=== PATIENT | female | born 1955 | race Caucasian/White ===

== ENCOUNTER → 2016-10-09 | Day surgery (SDC) | payer OTHER ==
[2016-10-09 08:00] VITALS: BP 126/69
== END | disposition home or self-care (01) ==
LOC: OR 08:25
DX: E66.01 Morbid (severe) obesity due to excess calories (principal); E46 Unspecified protein-calorie malnutrition; J96.90 Respiratory failure, unspecified, unspecified whether with hypoxia or hypercapnia; I10 Essential (primary) hypertension; E11.9 Type 2 diabetes mellitus without complications; Z79.899 Other long term (current) drug therapy
CPT/HCPCS: 50010; 50101; 50249; 50386; 52265; 54118; 56526; 57092; 62110; 62900; 70005

== ENCOUNTER 2016-10-17 12:23 | Inpatient (IN) | payer OTHER ==
[~2016-10-17] VITALS: Ht 162.6 cm; Wt 156.9 kg
--- NOTE | ~2016-10-17 | S ---
[facility] [place] [address] SURGICAL PATH RPT PROCEDURE Name: NU MODI Room #: 247-P [facility] IN M.R.#: [id number] Admission: 10/17/16 Date of : 53 Discharge: 10/25/16 Report #: [id number] Path Case #: [id number] PATHOLOGY REPORT COLLECTION DATE: 10/23/2016 RECEIVED DATE: 10/26/2016 SUBMITTING PHYS: Dr. Duy Young OTHER PHYS: Dr. Kev Faith SPECIMEN(S) RECEIVED: A.Gastric ulcer * * * * * * * * * * * * FINAL DIAGNOSIS: Gastric ulcer, excision: - Marked active ulceration extending transmurally. - Negative for dysplasia or malignancy. COMMENT: Helicobacter pylori immunohistochemical stain is ordered on block A1, and the results of this stain will be reported in an addendum to follow. (IUV:mgr; 10/27/2016) PATHOLOGIST: Jessica Martinez M.D. REPORT ELECTRONICALLY SIGNED BY: Jessica Martinez M.D. DATE/TIME: 10/27/2016 15:41 * * * * * * * * * * * * GROSS PATHOLOGY: The specimen is received in formalin labeled "Nu Modi, gastric ulcer". Received is a segment of stomach with a single stapled margin of resection measuring 4.5 x 2.0 x 1.5 cm in greatest measures. The margin opposite the sonia displays exposed pale smith to red-brown mucosa measuring 2.5 x 2.0 cm. Opening the specimen reveals red-smith to light smith mucosa with minimal architectural folding. No distinct nodules or lesions are noted grossly. The specimen is submitted representatively in cassette A1. (CAA; 10/26/2016) CLINICAL HISTORY: Bleeding gastric ulcer INITIAL CPT CODE(S): [facility] [place] [address] SURGICAL PATH RPT PROCEDURE Name: NU MODI Room #: 247-P [facility] IN M.R.#: [id number] Admission: 10/17/16 Date of : 53 Discharge: 10/25/16 Report #: [id number] Path Case #: [id number] Professional services performed by [facility] at [address] [place] [address] Technical services performed by [facility] at [address] [place] [address], [place] [address]. CC: Boom [facility] [address] [place] [address] PHONE: [phone] DIRECTOR: Umair Titus M.D. * * * END OF REPORT * * *
[2016-10-17 12:53] LABS: HEMATOCRIT 23.3 % (37.0-47.0); HEMOGLOBIN 7.2 gm/dL (12.0-15.0); MCH 27.7 pg (26.0-34.0); MCHC 30.8 g/dL (28.0-37.0); MCV 89.8 fL (80.0-100.0); PLATELET COUNT 325 thou/uL (150-400); RBC 2.59 mil/uL (4.20-5.00); RDW 16.7 % (10.5-14.5); WBC 15.2 thou/uL (4.0-11.0)
[2016-10-17 12:55] LABS: MANUAL DIFF YES
[2016-10-17 13:01] LABS: CALCIUM 8.7 mg/dL (8.5-10.1); POTASSIUM 3.9 mmol/L (3.5-5.1)
[2016-10-17 13:06] LABS: ALBUMIN 1.5 g/dL (3.4-5.0); APTT 40.2 Seconds (24.5-32.8); DIRECT BILIRUBIN 0.1 mg/dL (<0.1-0.3); INR 2.4; PROTIME 24.6 Seconds (9.3-11.4); TOTAL BILIRUBIN 0.3 mg/dL (<0.1-1.0); TOTAL PROTEIN 6.2 g/dL (6.4-8.2)
[2016-10-17 13:35] LABS: ABSOLUTE NEUTROPHILS 10.2 thou/uL (1.4-8.2); METAMYELOCYTES 3 %; MYELOCYTES 1 %; NUCLEATED RBCS 1 /100WBC; TOTAL CELL COUNT 100
[2016-10-17 13:36] LABS: ANISOCYTOSIS 2+; POLYCHROMASIA 1+
[2016-10-17 13:37] LABS: POIKILOCYTOSIS SLIGHT
[2016-10-17] MEDS ORDERED: NORVASC5 MG PO (15:01)
[2016-10-17] MEDS ORDERED: LOPRESSOR25 PO (15:10)
[2016-10-17] MEDS ORDERED: PREVACID30 M2 PER TUBE (15:14)
[2016-10-17] MEDS ORDERED: LEVEMIR FL100 UNIT/2 SQ (15:15)
[2016-10-17] MEDS ORDERED: PIPERACIL-TA3.375 G1 IV (15:16)
[2016-10-17] MEDS ORDERED: NOVOLOG100 UNIT/1 SUBQ (16:39)
[2016-10-17] MEDS ORDERED: COUMADIN 5 MG TA5 M1 PO (16:39)
[2016-10-17] MEDS ORDERED: VANCOMYCIN500 MG/VIA IV (16:41)
[2016-10-17] MEDS ORDERED: DIFLUCAN200 MG IV (16:41)
[2016-10-17] MEDS ORDERED: ZOSYN 2.25 GR2.25 GM IV (16:41)
[2016-10-17] MEDS ORDERED: ALBUTEROL2.5 MG/31 INH (16:42)
[2016-10-17] MEDS ORDERED: FEVERALL650 MG PER TUBE (16:42)
[2016-10-17] MEDS ORDERED: NITROGLYCERIN1 EAC1 TD (16:43)
[2016-10-17 19:19] LABS: HEMATOCRIT 22.4 % (37.0-47.0); HEMOGLOBIN 6.8 gm/dL (12.0-15.0)
[2016-10-17 19:50] VITALS: BP 108/56
[2016-10-17 20:00] VITALS: BP 157/146
[2016-10-17 20:32] VITALS: BP 103/55
[2016-10-17 21:00] VITALS: BP 106/61
[2016-10-17 22:00] VITALS: BP 101/53
[2016-10-17 23:00] VITALS: BP 99/55
[2016-10-18] VITALS (36 sets, daily range): BP systolic 77–116; BP diastolic 48–96
[2016-10-18 01:12] LABS: HEMATOCRIT 20.5 % (37.0-47.0)
[2016-10-18 01:13] LABS: HEMOGLOBIN 6.3 gm/dL (12.0-15.0)
[2016-10-18] MEDS ORDERED: DIFLUCAN IVPB (04:13)
[2016-10-18] MEDS ORDERED: ENOXAPARIN100 MG/11 SUBQ (04:18)
[2016-10-18] MEDS ORDERED: ENOXAPARIN80 MG/0.1 SUBQ (04:19)
[2016-10-18 05:32] LABS: HEMATOCRIT 23.7 % (37.0-47.0); HEMOGLOBIN 7.5 gm/dL (12.0-15.0); MCH 27.8 pg (26.0-34.0); MCHC 31.7 g/dL (28.0-37.0); MCV 87.7 fL (80.0-100.0); RBC 2.7 mil/uL (4.20-5.00); RDW 17.3 % (10.5-14.5); WBC 14.5 thou/uL (4.0-11.0)
[2016-10-18 05:53] LABS: INR 1.8; PROTIME 19.1 Seconds (9.3-11.4)
[2016-10-18 06:01] LABS: ALBUMIN 1.4 g/dL (3.4-5.0); CALCIUM 8.6 mg/dL (8.5-10.1); CREATININE 1.7 mg/dL (0.6-1.0); POTASSIUM 3.7 mmol/L (3.5-5.1); TOTAL BILIRUBIN 0.4 mg/dL (<0.1-1.0); TOTAL PROTEIN 5.9 g/dL (6.4-8.2)
[2016-10-18 20:41] LABS: HEMOGLOBIN 6.8 gm/dL (12.0-15.0)
[2016-10-18 20:42] LABS: HEMATOCRIT 21.5 % (37.0-47.0)
[2016-10-19] VITALS (64 sets, daily range): BP systolic 73–105; BP diastolic 49–75
[2016-10-19 05:24] LABS: HEMOGLOBIN 6.5 gm/dL (12.0-15.0); WBC 11.3 thou/uL (4.0-11.0)
[2016-10-19 05:25] LABS: HEMATOCRIT 20.5 % (37.0-47.0); MCH 27.5 pg (26.0-34.0); MCHC 31.7 g/dL (28.0-37.0); MCV 86.9 fL (80.0-100.0); RBC 2.36 mil/uL (4.20-5.00); RDW 17.3 % (10.5-14.5)
[2016-10-19 05:39] LABS: CALCIUM 8.4 mg/dL (8.5-10.1); CREATININE 1.2 mg/dL (0.6-1.0)
[2016-10-19 05:40] LABS: POTASSIUM 2.9 mmol/L (3.5-5.1)
[2016-10-19 11:52] LABS: HEMATOCRIT 23.4 % (37.0-47.0); HEMOGLOBIN 7.4 gm/dL (12.0-15.0)
[2016-10-19 12:01] LABS: MAGNESIUM 2.4 mg/dL (1.8-2.4); POTASSIUM 3.5 mmol/L (3.5-5.1)
[2016-10-20] VITALS (35 sets, daily range): BP systolic 85–118; BP diastolic 51–85
[2016-10-20 07:18] LABS: HEMATOCRIT 22.1 % (37.0-47.0); HEMOGLOBIN 7.1 gm/dL (12.0-15.0); MCH 28.1 pg (26.0-34.0); MCHC 32.1 g/dL (28.0-37.0); MCV 87.4 fL (80.0-100.0); RBC 2.53 mil/uL (4.20-5.00); RDW 17.5 % (10.5-14.5); WBC 9.2 thou/uL (4.0-11.0)
[2016-10-20 07:45] LABS: CALCIUM 8.2 mg/dL (8.5-10.1); CREATININE 1.1 mg/dL (0.6-1.0); POTASSIUM 3.4 mmol/L (3.5-5.1)
[2016-10-20 12:46] LABS: CALCIUM 8.3 mg/dL (8.5-10.1); CREATININE 1.1 mg/dL (0.6-1.0); POTASSIUM 3.2 mmol/L (3.5-5.1)
[2016-10-21] VITALS (46 sets, daily range): BP systolic 93–132; BP diastolic 61–111
[2016-10-21 04:23] LABS: HEMATOCRIT 22.8 % (37.0-47.0); HEMOGLOBIN 7.5 gm/dL (12.0-15.0); MCH 28.6 pg (26.0-34.0); MCHC 32.9 g/dL (28.0-37.0); RBC 2.62 mil/uL (4.20-5.00); RDW 17.8 % (10.5-14.5); WBC 8.6 thou/uL (4.0-11.0)
[2016-10-21 04:39] LABS: CALCIUM 8.3 mg/dL (8.5-10.1); POTASSIUM 3.5 mmol/L (3.5-5.1)
[2016-10-21 15:49] LABS: INR 2.5; PROTIME 26.1 Seconds (9.3-11.4)
[2016-10-22] VITALS (68 sets, daily range): BP systolic 77–142; BP diastolic 50–99
[2016-10-22 05:36] LABS: HEMATOCRIT 22.7 % (37.0-47.0); HEMOGLOBIN 7.2 gm/dL (12.0-15.0); MCH 27.9 pg (26.0-34.0); MCHC 31.6 g/dL (28.0-37.0); MCV 88.4 fL (80.0-100.0); RBC 2.56 mil/uL (4.20-5.00); RDW 18.5 % (10.5-14.5); WBC 8.4 thou/uL (4.0-11.0)
[2016-10-22 07:06] LABS: CALCIUM 7.5 mg/dL (8.5-10.1); POTASSIUM 3.1 mmol/L (3.5-5.1)
[2016-10-22 09:25] LABS: INR 2.9; PROTIME 29.9 Seconds (9.3-11.4)
[2016-10-22 11:08] LABS: MAGNESIUM 1.3 mg/dL (1.8-2.4); PHOSPHORUS 1.5 mg/dL (2.5-4.9)
[2016-10-22 18:15] LABS: PROTIME 20.5 Seconds (9.3-11.4)
[2016-10-23] VITALS (84 sets, daily range): BP systolic 111–147; BP diastolic 69–106
[2016-10-23 00:26] LABS: INR 1.8; PROTIME 18.6 Seconds (9.3-11.4)
[2016-10-23 05:20] LABS: HEMOGLOBIN 6.9 gm/dL (12.0-15.0)
[2016-10-23 05:21] LABS: MCH 28.2 pg (26.0-34.0); MCHC 32.7 g/dL (28.0-37.0); MCV 86.2 fL (80.0-100.0); RBC 2.44 mil/uL (4.20-5.00); RDW 17.9 % (10.5-14.5); WBC 6.8 thou/uL (4.0-11.0)
[2016-10-23 05:33] LABS: ALBUMIN 2.2 g/dL (3.4-5.0); CALCIUM 8.5 mg/dL (8.5-10.1); MAGNESIUM 1.4 mg/dL (1.8-2.4); PHOSPHORUS 2.2 mg/dL (2.5-4.9); TOTAL BILIRUBIN 0.3 mg/dL (<0.1-1.0); TOTAL PROTEIN 6.4 g/dL (6.4-8.2)
[2016-10-23 05:36] LABS: INR 1.6; PROTIME 16.8 Seconds (9.3-11.4)
[2016-10-23 05:48] LABS: POTASSIUM 2.9 mmol/L (3.5-5.1)
[2016-10-23 18:37] LABS: HEMATOCRIT 30.3 % (37.0-47.0)
[2016-10-23 18:39] LABS: HEMOGLOBIN 9.7 gm/dL (12.0-15.0)
[2016-10-23 18:42] LABS: MAGNESIUM 1.7 mg/dL (1.8-2.4); POTASSIUM 3.8 mmol/L (3.5-5.1)
[2016-10-24] VITALS (47 sets, daily range): BP systolic 109–153; BP diastolic 67–98
[2016-10-24 05:26] LABS: ABG SAMPLE TYPE ARTERIAL; BE(vivo) -0.9 mmol/L (-2 to +3); FIO2 30 %; HCO3 23.3 mmol/L (22.0-26.0); LACTATE 2.25 mmol/L (0.5-2.0); O2(CT) 13.9 mL/dL (15.0-23.0); O2Hb 95.4 % (92.0-98.0); PCO2 36.9 mmHg (35.0-45.0); PO2 88.2 mmHg (80.0-100.0); STICK SITE L.RADIAL; TIDAL VOLUME 500 ml; pH 7.419 (7.360-7.450); sO2 96.9 % (92.0-98.0); tCO2 24.5 mmol/L (24.0-30.0)
[2016-10-24 05:59] LABS: HEMATOCRIT 28.2 % (37.0-47.0); HEMOGLOBIN 9.4 gm/dL (12.0-15.0); MCH 28.4 pg (26.0-34.0); MCHC 33.4 g/dL (28.0-37.0); MCV 85.1 fL (80.0-100.0); RBC 3.32 mil/uL (4.20-5.00); RDW 18.1 % (10.5-14.5); WBC 8.8 thou/uL (4.0-11.0)
[2016-10-24 06:42] LABS: CALCIUM 8.6 mg/dL (8.5-10.1); MAGNESIUM 1.7 mg/dL (1.8-2.4); PHOSPHORUS 2.5 mg/dL (2.5-4.9); POTASSIUM 3.6 mmol/L (3.5-5.1)
[2016-10-25] VITALS (18 sets, daily range): BP systolic 84–162; BP diastolic 57–91
[2016-10-25 05:23] LABS: URINE BILIRUBIN NEGATIVE (Negative); URINE BLOOD 2+ (Negative); URINE COLOR YELLOW; URINE GLUCOSE-RANDOM* NEGATIVE (Negative); URINE KETONES NEGATIVE (Negative); URINE LEUKOCYTES-REFLEX 3+ (Negative); URINE PROTEIN (DIPSTICK) 1+ (Negative); URINE UROBILINOGEN 0.2 E.U./dl (0.2-1.0)
[2016-10-25 05:34] LABS: CALCIUM 7.9 mg/dL (8.5-10.1); CREATININE 0.9 mg/dL (0.6-1.0); MAGNESIUM 1.8 mg/dL (1.8-2.4); PHOSPHORUS 1.9 mg/dL (2.5-4.9); POTASSIUM 3.5 mmol/L (3.5-5.1); SQUAMOUS 0-3 Few /LPF (0-3); URINE RBC 3-10 Few /HPF (0-2); URINE WBC-REFLEX >25 Many /HPF (0-5)
[2016-10-25 05:35] LABS: CASTS None Seen /LPF (None Seen); CRYSTALS None Seen /LPF (None Seen); YEAST-REFLEX Present (None Seen)
== END 2016-10-25 17:00 | DRG 326 ==
LOC: ER 12:23 → EROBS 16:16 → ICU 16:16
PROVIDERS: Emergency Medicine; Internal Medicine; Internal Medicine Geriatric Medicine; Internal Medicine Pulmonary Disease; Nurse Practitioner Adult Health; Specialist; Surgery
DX: K94.23 Gastrostomy malfunction (principal); A41.9 Sepsis, unspecified organism; J96.20 Acute and chronic respiratory failure, unspecified whether with hypoxia or hypercapnia; K65.9 Peritonitis, unspecified; K92.2 Gastrointestinal hemorrhage, unspecified; D62 Acute posthemorrhagic anemia; E87.0 Hyperosmolality and hypernatremia; N17.9 Acute kidney failure, unspecified; I13.0 Hypertensive heart and chronic kidney disease with heart failure and stage 1 through stage 4 chronic kidney disease, or unspecified chronic kidney disease; I50.32 Chronic diastolic (congestive) heart failure; N13.2 Hydronephrosis with renal and ureteral calculous obstruction; E46 Unspecified protein-calorie malnutrition; N39.0 Urinary tract infection, site not specified; Z68.43 Body mass index [BMI] 50.0-59.9, adult; Z99.11 Dependence on respirator [ventilator] status; G47.33 Obstructive sleep apnea (adult) (pediatric); G89.29 Other chronic pain; M54.9 Dorsalgia, unspecified; E66.01 Morbid (severe) obesity due to excess calories; E87.6 Hypokalemia; E11.22 Type 2 diabetes mellitus with diabetic chronic kidney disease; N18.9 Chronic kidney disease, unspecified; E87.8 Other disorders of electrolyte and fluid balance, not elsewhere classified; Z86.711 Personal history of pulmonary embolism; Z79.899 Other long term (current) drug therapy
CPT/HCPCS: 10078; 50101; 50386; 51238; 51412; 51708; 51714; 56525; 56527; 56530; 57092; 62110; 62900

== ENCOUNTER → 2016-11-03 | Outpatient (CLI) | payer OTHER ==
[~2016-11-03] MED LIST: ALBUTEROL2.5 MG/31 INH; COUMADIN 5 MG TA5 M1 PO; DIFLUCAN IVPB; DIFLUCAN200 MG IV; ENOXAPARIN100 MG/11 SUBQ; ENOXAPARIN80 MG/0.1 SUBQ; FEVERALL650 MG PER TUBE; LEVEMIR FL100 UNIT/2 SQ; LEVEMIR SUBQ; LOPRESSOR25 PO; NITROGLYCERIN1 EAC1 TD; NORVASC5 MG PO; NOVOLOG100 UNIT/1 SUBQ; PIPERACIL-TA3.375 G1 IV; PREVACID30 M2 PER TUBE; VANCOMYCIN500 MG/VIA IV; ZOSYN 2.25 GR2.25 GM IV
== END ==
LOC: SPEC 09:55
DX: T85.598A Other mechanical complication of other gastrointestinal prosthetic devices, implants and grafts, initial encounter (principal); E66.01 Morbid (severe) obesity due to excess calories; G47.33 Obstructive sleep apnea (adult) (pediatric); E11.9 Type 2 diabetes mellitus without complications; M54.5 Low back pain; G89.29 Other chronic pain; I10 Essential (primary) hypertension; J96.10 Chronic respiratory failure, unspecified whether with hypoxia or hypercapnia; Z86.2 Personal history of diseases of the blood and blood-forming organs and certain disorders involving the immune mechanism; Z79.899 Other long term (current) drug therapy

== ENCOUNTER → 2016-11-04 | Outpatient (CLI) | payer OTHER ==
[2016-11-04 08:33] VITALS: BP 107/64
== END | disposition home or self-care (01) ==
LOC: SPEC 06:22
DX: T85.598A Other mechanical complication of other gastrointestinal prosthetic devices, implants and grafts, initial encounter (principal); E66.01 Morbid (severe) obesity due to excess calories; E11.9 Type 2 diabetes mellitus without complications; M54.5 Low back pain; G47.33 Obstructive sleep apnea (adult) (pediatric); F51.9 Sleep disorder not due to a substance or known physiological condition, unspecified; I11.0 Hypertensive heart disease with heart failure; I50.9 Heart failure, unspecified